=== PATIENT | female | born 1945 | race Caucasian/White ===

== ENCOUNTER → 2020-11-30 | Outpatient (CLI) | payer MEDICARE, OTHER | LOC: MAMO 14:50 | DX: Z12.31 Encounter for screening mammogram for malignant neoplasm of breast (principal) | CPT/HCPCS: 77063; 77067 ==

== ENCOUNTER → 2022-03-25 | Outpatient (CLI) | payer MEDICARE, OTHER | LOC: KOH-I 11:55 | DX: S82.852A Displaced trimalleolar fracture of left lower leg, initial encounter for closed fracture (principal); X58.XXXA Exposure to other specified factors, initial encounter | CPT/HCPCS: 73700 ==

== ENCOUNTER → 2022-03-29 | Outpatient (CLI) | payer MEDICARE, OTHER ==
[~2022-03-29] MED LIST: B12 ACTIVE1000 MCG PO; ELDERBERRY; HYDROCODON-ACE1 EAC6 PO; LOSARTAN POTASS25 MG PO; MAG; NORVASC5 MG PO; ONE DAILY MULT1 EAC1 PO; PEPCID20 MG PO; POTASSIUM CHLORIDE; SELENIUM200 MCG PO; SIMVASTATIN20 MG PO; TUMERIC; VALARIAN ROOT; VITAMIN C1000 MG PO; VITAMIN E180 M1 PO; Vitamin D2; ZINC; [UNRECOGNIZED DRUG - OTHER]
[2022-03-29 14:34] LABS: HEMOGLOBIN 13.7 gm/dl (12.3-15.3); RED BLOOD COUNT 4.36 M/UL (4.00-5.10); WHITE BLOOD COUNT 8.9 K/UL (4.5-11.0)
[2022-03-29 14:52] LABS: BUN/CREATININE RATIO 21 (0-10)
== END ==
LOC: OPSV2 12:30
PROVIDERS: Podiatrist Foot & Ankle Surgery
DX: Z01.818 Encounter for other preprocedural examination (principal); S82.842A Displaced bimalleolar fracture of left lower leg, initial encounter for closed fracture
CPT/HCPCS: 36415; 71046; 80048; 81001; 85027; 93005

== ENCOUNTER → 2022-04-05 | Outpatient (CLI) | payer MEDICARE, OTHER ==
[~2022-04-05] MED LIST changes: +ASPIRIN 325MG325 MG PO; +BAYER CHEWABLE81 MG PO; +MACROBID 100 M100 MG PO; +MELATONIN10 MG PO; +OIL OF OREGAN1500 MG PO; -POTASSIUM CHLORIDE; +POTASSIUM CHLORIDE PO; -TUMERIC; +TUMERIC PO; -VALARIAN ROOT; +VALARIAN ROOT PO
== END ==
LOC: KOH-I 09:47
DX: S82.852D Displaced trimalleolar fracture of left lower leg, subsequent encounter for closed fracture with routine healing (principal)
CPT/HCPCS: 73610

== ENCOUNTER → 2022-04-19 | Outpatient (CLI) | payer MEDICARE, OTHER | LOC: KOH-I 09:54 | DX: S82.852A Displaced trimalleolar fracture of left lower leg, initial encounter for closed fracture (principal) | CPT/HCPCS: 73610 ==

== ENCOUNTER → 2022-05-10 | Outpatient (CLI) | payer MEDICARE, OTHER | LOC: KOH-I 09:35 | DX: S82.852D Displaced trimalleolar fracture of left lower leg, subsequent encounter for closed fracture with routine healing (principal); X58.XXXA Exposure to other specified factors, initial encounter | CPT/HCPCS: 73610 ==

== ENCOUNTER → 2022-05-24 | Outpatient (CLI) | payer MEDICARE, OTHER | LOC: KOH-I 09:05 | DX: M25.572 Pain in left ankle and joints of left foot (principal); Z96.662 Presence of left artificial ankle joint | CPT/HCPCS: 73610 ==